=== PATIENT | male | born 1980 | race Caucasian/White ===

== ENCOUNTER 2025-01-09 11:54 | Emergency (ER) | payer SELFPAY ==
[~2025-01-09] VITALS: Ht 185.4 cm; Wt 83.9 kg
[2025-01-09] MEDS ORDERED: diphenhydrAMINE hydrochloride 50 MG/ML VIAL IV ONE (12:15)
[2025-01-09] MEDS ORDERED: FAMOTIDINE 50 ML IV ONE (12:15)
[2025-01-09] MEDS ORDERED: SODIUM CHLORIDE 0.9% 1,000 ML IV ONE (12:15)
[2025-01-09 12:42] LABS: MEAN CELL VOLUME 88.2 fl (80.0-94.0); MEAN CORPUSCULAR HGB 29.6 pg (27.0-31.0); MEAN PLATELET VOLUME 10.7 fl (9.6-12.3); NUCLEATED RED BLOOD CELL 0.0 % (0.0-0.0); NUCLEATED RED BLOOD CELL 0.0 10*3/uL (0.0-0.0); PLATELET COUNT AUTOMATED 306 10*3/uL (130-400); RED CELL DISTRI WIDTH 14.1 % (0-14.5)
[2025-01-09 12:55] LABS: MANUAL DIFF REFLEX YES
[2025-01-09 13:10] LABS: BUN 11 mg/dl (9-23)
[2025-01-09 13:14] LABS: PLATELET SUFFICIENCY NORMAL (NORMAL)
[2025-01-09] MEDS ORDERED: MEDROL DOSEPAK4 MG PO (14:41)
== END 2025-01-09 14:46 | disposition home or self-care (01) ==
LOC: ED 11:54
PROVIDERS: Nurse Practitioner Family
DX: L23.7 Allergic contact dermatitis due to plants, except food (principal)